=== PATIENT | female | born 1965 | race Caucasian/White ===

== ENCOUNTER → 2016-08-29 | Outpatient (CLI) | payer OTHER ==
[~2016-08-29] MED LIST: AMOXICILLIN PO; AMOXIL875 MG PO; BACTRIM DS TABL1 TAB PO; BENZONATATE PO; BLEPH-105 ML OP; DARVOCET-N 1001 TAB PO; DICLOFENAC PO; DIFLUCAN PO; DOXYCYCLINE PO; LEVAQUIN PO; MEDROL DOSEPAK4 MG PO; MEDROL PO; MOBIC15 MG PO; NO MEDICATIONS; PHENERGAN PO; ROBAXIN500 MG PO; SYNTHROID75 MCG PO; TUSSIONEX PENN473 ML PO; TYLENOL #3 PO; VOLTAREN75 MG PO; ZESTRIL10 M2; ZITHROMAX PO; ZOLOFT PO; ZOVIRAX400 MG PO; [UNRECOGNIZED DRUG - REMARK]
--- NOTE | ~2016-08-29 | CR63 ---
[facility] A Service of [facility] RADIOLOGY TEXT RESULTS PATIENT: ANA PRINCE LOCATION: [facility] : 61 UNIT #: [id number] AGE: [address]: Brittani Rosario MD SEX: F ORDER DR: [id number] [address] [address] [id number] O MR#: [id number] Acc #: [id number] NAME: ANA PRINCE : 1965 SEX: F STUDY DATE/TIME: 08/29/2016 12:33 [facility] ROOM: STUDY DESCRIPTION: CR Chest 2 View Attending Physician: Brittani Rosario M.D. Referring Physician: Brittani Rosario M.D. Ordering Physician: Brittani Rosario M.D. Primary Care Physician: Brittani Rosario M.D. MEDICAL IMAGING REPORT This report is preliminary unless electronic signature is present. EXAM Chest, 08/29/2016 HISTORY 51-year-old woman, follow up pneumonia 2 weeks ago. Short of breath, cough. COMPARISON 08/13/2016. FINDINGS Two-view chest demonstrates cardiac enlargement. There is vascular prominence with cephalization of pulmonary venous distribution. Bilateral infiltrates have cleared. There is mild generalized interstitial prominence. Costophrenic angles appear preserved. Large body habitus noted. IMPRESSION 1. Resolution of previously noted bilateral pneumonia. Low-grade or early heart failure is suggested. Correlate clinically in this regard. Dictated by... Burak Oliveira M.D. THIS IS AN ELECTRONICALLY VERIFIED REPORT Burak Oliveira M.D. at 08/30/2016 8:10 AM EAMONB/yanick TD: 08/29/2016 19:10 JOB #: [id number] [facility] A Service of [facility] RADIOLOGY TEXT RESULTS PATIENT: ANA PRINCE LOCATION: [facility] : 61 UNIT #: [id number] AGE: [address]: Brittani Rosario MD SEX: F ORDER DR: MEDICAL IMAGING REPORT Page 1 of 1
== END | disposition home or self-care (01) ==
LOC: SRAD 12:28
DX: J18.9 Pneumonia, unspecified organism (principal)
CPT/HCPCS: 71020

== ENCOUNTER 2016-10-05 16:39 | Emergency (ER) | payer OTHER ==
--- NOTE | ~2016-10-05 | CR72 ---
[facility] A Service of [facility] RADIOLOGY TEXT RESULTS PATIENT: ANA PRINCE LOCATION: SED : 61 UNIT #: [id number] AGE: [address]: INES BARONE SEX: F ORDER DR: [id number] [place] [id number] E MR#: [id number] Acc #: [id number] NAME: ANA PRINCE : 1965 SEX: F STUDY DATE/TIME: 10/05/2016 17:56 UNIT: SED ROOM: STUDY DESCRIPTION: CR Chest Single View Portable Attending Physician: Ines Barone A.P.R.N. Ordering Physician: Ines Barone A.P.R.N. Primary Care Physician: Brittani Rosario M.D. MEDICAL IMAGING REPORT This report is preliminary unless electronic signature is present. EXAM Frontal chest, 10/05/2016. INDICATIONS 51-year-old female with knee pain and breast pain since 3:30 this afternoon. Slipped in water at BW3. TECHNIQUE Frontal chest was performed and compared with 08/29/2016. FINDINGS Cardiac silhouette is borderline in size. Lung volumes are low. Interval increase in interstitial prominence in both lungs. Correlate clinically for signs or symptoms of mild volume overload. No effusion, dense consolidation, or pneumothorax. IMPRESSION Borderline cardiac size with imaging features suggestive of mild interval worsening of vascular congestion and faint interstitial edema. No pneumothorax. Dictated by... Nabil Houston M.D. THIS IS AN ELECTRONICALLY VERIFIED REPORT Nabil Houston M.D. at 10/06/2016 2:24 PM DAKSHA/nelly TD: 10/06/2016 12:43 JOB #: [id number] [facility] A Service of [facility] RADIOLOGY TEXT RESULTS PATIENT: ANA PRINCE LOCATION: SED : 61 UNIT #: [id number] AGE: [address]: INES BARONE SEX: F ORDER DR: MEDICAL IMAGING REPORT Page 1 of 1
--- NOTE | ~2016-10-05 | CR172 ---
[facility]. [facility] A Service of [facility] RADIOLOGY TEXT RESULTS PATIENT: ANA PRINCE LOCATION: SED : 61 UNIT #: [id number] AGE: [address]: INES BARONE SEX: F ORDER DR: [id number] [place] [id number] E MR#: [id number] Acc #: [id number] NAME: ANA PRINCE : 1965 SEX: F STUDY DATE/TIME: 10/05/2016 17:56 UNIT: SED ROOM: STUDY DESCRIPTION: CR Knee 3 Views Lt Attending Physician: Ines Barone A.P.R.N. Ordering Physician: Ines Barone A.P.R.N. Primary Care Physician: Brittani Rosario M.D. MEDICAL IMAGING REPORT This report is preliminary unless electronic signature is present. EXAM Left knee 3 views 10/0510/05/2016. INDICATIONS Slipped in water at BW3 at 15:30 hours today and now has knee pain. TECHNIQUE 3 views left knee. COMPARISON 12/17/2014. FINDINGS There is mild degenerative change in the patellofemoral and medial compartments. Enthesopathic changes are present of the patella. No joint effusion. No acute fracture. IMPRESSION 1. Degenerative changes, otherwise negative. Dictated by... Nabil Houston M.D. THIS IS AN ELECTRONICALLY VERIFIED REPORT Nabil Houston M.D. at 10/06/2016 2:24 PM DAKSHA/cm TD: 10/06/2016 12:39 JOB #: [id number] MEDICAL IMAGING REPORT Page 1 of 1
[~2016-10-05 16:39] MED LIST changes: -ZESTRIL10 M2
[2016-10-05] MEDS ORDERED: ZESTRIL10 M2 (16:49)
== END 2016-10-05 19:13 | disposition home or self-care (01) ==
LOC: SED 16:39
DX: S80.02XA Contusion of left knee, initial encounter (principal); S20.211A Contusion of right front wall of thorax, initial encounter; Z91.040 Latex allergy status; Z88.5 Allergy status to narcotic agent; W17.89XA Other fall from one level to another, initial encounter
CPT/HCPCS: 71010; 73562; 99283; J1885